=== PATIENT | male | born 1955 | race Caucasian/White ===

== ENCOUNTER 2017-09-30 14:30 | Inpatient (IN) | payer OTHER ==
[2017-09-30 15:12] VITALS: BMI 22.8
[2017-09-30 16:11] LABS: CKMB 0.7 ng/mL (0-6.6); Troponin I Less than 0.010 ng/mL (< 0.028)
[2017-09-30] MEDS ORDERED: Gentamicin 80 MG/2 ML VIAL ONE (17:39)
[2017-09-30] MEDS ORDERED: CEFAZOLIN 1 GM VIAL ONE (17:39)
[2017-09-30] MEDS ORDERED: Lidocaine 1% (PF) 30 ML VIAL ONE ×2 (17:39→18:30)
[2017-09-30] MEDS ORDERED: CEFAZOLIN/Water 2 GM/20 ML SYRINGE ONE (17:39)
[2017-09-30] MEDS ORDERED: HYDROcodone/Acetaminophen 10/325 mg Tablet PO SCH (20:45)
[2017-09-30] MEDS ORDERED: Enoxaparin Sodium 30 MG/0.3 ML SYRINGE SC SCH (21:00)
--- NOTE | 2017-09-30 21:00 | RAD ---
AP VIEW CHEST: INDICATIONS: Status post pacemaker insertion. COMPARISON: 09/26/2015 IMPRESSION: There is a new dual-lead pacemaker overlying the left chest wall. No pneumothorax is evident. No pl eural effusion is noted. Post traumatic/post surgical change involving the right clavicle is stable. POS: [facility]
[2017-09-30] MEDS ORDERED: Acetaminophen/Codeine 30-300mg Tablet PO PRN (21:13)
[2017-09-30] MEDS ORDERED: hydrALAZINE 20 MG/ML VIAL ONE (21:26)
[2017-09-30] MEDS ORDERED: Rosuvastatin 20 MG TAB PO SCH (21:30)
[2017-09-30] MEDS ORDERED: Amlodipine 5 MG TAB PO SCH (21:30)
[2017-10-01 05:47] LABS: ALT (SGPT) 41 U/L (8-55); AST (SGOT) 23 U/L (5-34); Albumin 3.7 g/dL (3.4-4.8); Alkaline Phosphatase 114 U/L (40-150); Anion Gap 13 mmol/L (10-20); BUN (Urea Nitrogen) 19 mg/dL (8.4-25.7); Bilirubin, Total 0.5 mg/dL (0.2-1.2); Calc. Creatinine Clearance 60 mL/min (70-130); Carbon Dioxide 22 mmol/L (23-31); Cardiac Risk 8.2 (Less than 4.5); Chloride 106 mmol/L (98-107); Cholesterol 262 mg/dl (< 200 Desired); Estimated GFR-MDRD 49; Globulin 2.8 g/dL (2.4-3.5); Glucose 148 mg/dL (80-115); HDL Cholesterol 32 mg/dL (>60 Neg Risk); LDL Cholesterol, Calculated 197 mg/dL; Potassium 4.1 mmol/L (3.5-5.1); Protein, Total 6.5 g/dL (5.8-8.1); Sodium 137 mmol/L (136-145); Triglycerides 166 mg/dL (Less than 150)
[2017-10-01 05:54] LABS: #Basophils 0.1 thou/uL (0.0-0.2); #Eosinphils 0.2 thou/uL (0.0-0.7); #Lymphocytes 1.1 thou/uL (1.20-3.40); #Monocytes 0.6 thou/uL (0.11-0.59); #Neutrophils 5.3 thou/uL (1.40-6.50); %Basophils 0.7 % (0.0-1.0); %Eosinophils 2.7 % (0.0-10.0); %Lymphocytes 15.5 % (21.0-51.0); %Monocytes 8.3 % (0.0-10.0); %Neutrophils 72.8 % (42.0-75.0); Hemoglobin 14.5 g/dL (14.0-18.0); Mean Corpuscular HGB CONC 34.8 g/dL (32.0-36.0); Mean Corpuscular Volume 94.9 fl (80.0-94.0); Mean Platelet Volume 9.1 fL (7.4-10.4); Platelet Count 154 thou/uL (130-400); Red Blood Cell (RBC) Count 4.41 mill/uL (4.70-6.10); White Blood Cell (WBC) Count 7.3 thou/uL (4.8-10.8)
--- NOTE | 2017-10-01 07:20 | CCL ---
PACEMAKER INSERTION: Date: 09/30/17 This is a 62-year-old patient who developed complete AV heart block with severe bradycardia. He was advised to undergo dual chamber pacemaker insertion. He was taken to cardiac catheterization lab, pr epped, and draped in sterile fashion, and underwent the procedure without difficulties or complicatio ns. He was implanted an Catrachita XT dual chamber pacemaker from [employer] with two screw in leads, one in the atrium and one in the ventricle. There were no significant difficulties or complications enco untered. The pacemaker set with the upper rate of 120 and the lower rate was set at 60. This is an MRI-compatible device. He did have some bleeding issues in closing of the wound, but otherwise good hemostasis was obtained prior to closing of the incision.
--- NOTE | 2017-10-01 08:54 | CON ---
DATE OF ADMISSION: 09/30/2017 DATE OF CONSULTATION: 09/30/2017 INDICATION FOR CONSULTATION: A 62-year-old gentleman with intermittent complete heart block. HISTORY OF PRESENT ILLNESS: This very pleasant 62-year-old gentleman, over the last week or two has had 2 syncopal episodes, one while he was walking to the door to look the dog out and the other time occurred after he is cutting some grass. He stopped more than passed out. He realized that he started feeling the lightheadedness coming on. He has also been not feeling very well and does complain of some atypical type chest discomfort, but this has been evaluated by Dr. Ray in the office. He recently was seen in the office on 08/06/2017. He has had a normal ejection fraction in the past by echocardiogram and has had a negative stress test for ischemia. At this time, while being on telemetry , it was noted that the patient had intermittent sinus rhythm, then ultimately had complete heart block. At this time, heart rate in the 30s and 40s any fluctuations in complete heart block and second degree heart block and a normal sinus rhythm. He has some significant degree of sinus node dysfunction and high degree of block. It will need to undergo pacemaker insertion. PAST MEDICAL HISTORY: Significant for hyperlipidemia and a history of pancreatitis in the past. ALLERGIES: None. MEDICATIONS: Prior to admission included aspirin, fish oil, and niacin. REVIEW OF SYSTEMS: Twelve point review of systems completely unremarkable except for what is noted in the history of present illness. FAMILY HISTORY: Noncontributory. ALLERGIES: None. SOCIAL HISTORY: He is , has no history of alcohol or tobacco abuse except for occasional alcohol use. LABORATORY DATA: Cardiac enzymes are negative. His creatinine is 1.56, BUN was 18. Sodium was 141, cholesterol was 220, which is elevated. His hemoglobin was 15.8, platelet count 154,000 hematocrit 44.4. PHYSICAL EXAMINATION: GENERAL: Reveals well-developed, well-nourished gentleman who is in no acute distress. At this time, he does feel occasionally lightheaded or dizzy. His heart rates in the 30s to 50s, and occasionally in the 60s, respiratory rate 16 , blood pressure 143/73. He is afebrile. HEENT: Shows head to be normocephalic, atraumatic. Carotid pulses are present. There were no bruits, there is no JVD. Thyroid not enlarged. CHEST: Clear to auscultation without rales, rhonchi, or wheezing. CARDIOVASCULAR: Exam reveals a bradycardia. There were no significant murmurs , heaves, thrills, bruits or rubs. ABDOMEN: Soft and flat and nontender. Positive bowel sounds are present. EXTREMITIES: Showed no clubbing, cyanosis, or edema. Pedal pulses are present. NEUROLOGIC: The patient remains intact despite having a significantly bradycardia associated with a complete heart block. IMPRESSION: 1. Intermittent complete heart block only with second degree heart block and occasional sinus rhythm. This obviously indicates a significant degree of sinus node dysfunction in a significant level of AV block. He will be advised to undergo urgent pacemaker insertion. I have explained the procedure and the risks to him to include bleeding, infection, possibly a myocardial infarction, CVA, renal insufficiency, allergic contrast reaction, and the possibility of . He understands and agrees to proceed. We will plan for pacemaker insertion today with dual-chamber pacemaker. 2. Dyslipidemia. He has significant elevation of his cholesterol level. He will be encouraged to start cholesterol medications, if he is unable to take statins which appears to may be the case as he is on fish oil and niacin that perhaps he start on injectable medications in the form of his K39 inhibitors. 3. Chest discomfort. This is somewhat atypical, but he may need further evaluation in the future, especially due to the significant elevation of the cholesterol level. I have explained the procedure for the pacemaker and the risks to include bleeding, infection, possibility of pneumothorax, hemothorax, pericardial tamponade, even the possibility of and he understands and agrees to proceed. We will plan for pacemaker insertion and urgently today. AD
[2017-10-01] MEDS ORDERED: Aspirin 325 mg Enteric Coated Tablet PO SCH (09:00)
[2017-10-01] MEDS: Amlodipine 5 MG TAB PO SCH (09:07)
[2017-10-01] MEDS ORDERED: Iopamidol 370 76% 100 ML VIAL ONE (09:47)
[2017-10-01] MEDS ORDERED: Acetaminophen 325 MG TAB PO PRN (10:45)
[2017-10-01] MEDS: cefTRIAXone\\ROCEPHIN 1 GM, Syringe 0.4 ML in Sterile Water 9.6 ML SLOW IVP SCH ×2 (11:13→22:34)
--- NOTE | 2017-10-01 11:16 | SS ---
REASON FOR ADMISSION/CHIEF COMPLAINT: The patient has episode of passing out about 3 days before the admission. HISTORY OF PRESENT ILLNESS: A 62-year-old white male who had a significant history of mixed type dys lipidemia, and started having decreased exercise tolerance about 2 years back. The patient was having intermittent decreased exercise tolerance, had a pulmonary consultation with irma guerriermonary function testing as well as distantly 3 months ago he had a cardiac stress test as well as a 2D echo and carotid Dopplers which were unremarkable and he was continued to have decline in exercis e tolerance. At the point about a week prior to this admission, the patient had an episode of syncop e at home. The patient was advised to come in the office and EKG was performed which showed Mobitz t ype 2 AV block as well as complete intermittent third degree AV block. The patient was planned to em ergently admit to the telemetry unit here at [facility]. The patient's symptoms included se evelin tiredness and fatigue over the last several days of duration with 2 episodes of syncope and feel ing severely fatigued and tiredness with heart rate in the 30s. The patient also had some headache, but no chest pain and did have shortness of breath with very mini mal exertion. No fever, no chills, no other symptomatology, no gastric acid reflux disorder, no sarah ritis. PAST MEDICAL HISTORY: Mixed type dyslipidemia for which he has stopped taking his Crestor for about 4-5 months. FAMILY HISTORY: Coronary artery disease at younger age. SOCIAL HISTORY: He does not smoke or does not drink and he is employed at [employer]. HOME MEDICATIONS: Currently none. REVIEW OF SYSTEMS: As dictated earlier. PHYSICAL EXAMINATION: VITAL SIGNS: The patient had a temperature 98.3, pulse 64, respirations 18, blood pressure 158/81. GENERAL: A very pleasant white male, not in acute distress. NECK: Supple. No carotid bruits appreciated. HEENT: PERRL, EOMI. Throat is clear. CARDIOVASCULAR: He does have some ectopic beats and some early beats with a slow heart examination. S1, S2 were slower with some irregularity in rhythm appreciated. CHEST: Clear to auscultation bilaterally. ABDOMEN: Soft, nontender, nondistended. EXTREMITIES: No cyanosis, clubbing or edema. NEUROLOGIC: No gross sensory or motor deficit appreciated. LABORATORY AND X-RAY FINDINGS: White count was 7.3, hemoglobin of 14.5, platelets was 154,000 and he matocrit was 41. Sodium was 137, potassium 4.1, chloride 106, bicarbonate 12, BUN of 19, creatinine was 1.4 and glucose 148. Triglyceride 166, LDL 197, HDL 32. Total cholesterol was 262. The patient had EKG which showed Mobitz type 2 block with heart rate of 37 at the time of admission. The patient is admitted. Dr. Ray was consulted as well as Dr. Chambers from [facility] fo r further evaluation and treatment of intermittent third-degree AV block as well as a second degree M obitz type 2 AV block. The patient was admitted to telemetry directly from the office initially with the help of [facility]. The patient went through pacemaker placement by Dr. Chambers. The pat ient on 09/30/2017 in late evening, the patient went to the cardiac catheterization lab with the help of Dr. Chambers and dual-chamber pacemaker was placed and the patient was transferred back to the teleme try unit post procedure. The patient has continued to do well. The patient's blood pressure went up so amlodipine 5 mg was added to his regimen of Crestor 20 mg p.o. at bedtime. The patient also comp lained of some headache most likely due to hypoperfusion from resolution of bradycardia and now his h eart rate in the 70s. Overall, the patient does not have any chest pain or dyspnea, but continued to have discomfort on the skin over the pacemaker was placed and some erythema on examination with warm th, so was the plan was to start him on IV Rocephin and some Tylenol p.r.n. for the headache and will give some [place] 10/325 q.6h. as needed for the pain. We will continue to follow during this hospita lization and discharge planning was done with the help of Dr. Chambers and continue to monitor pacemaker on outpatient setting by Dr. Chambers office. DISCHARGE MEDICATIONS: Most likely related medication upon discharge will be Crestor 20 mg one p.o. at bedtime, amlodipine 5 mg once a day and will add some antibiotic appears needed, which will be dec ided upon on outpatient follow up tomorrow. The patient was advised to have close followup in my off ice as well as Dr. Chambers' office and he agreed and understood.
[2017-10-01] MEDS ORDERED: Morphine 4 MG/ML VIAL SLOW IVP PRN ×2 (11:22→16:13)
[2017-10-01] MEDS ORDERED: Morphine 4 MG/ML VIAL SLOW IVP SCH (11:30)
[2017-10-01] MEDS ORDERED: Ondansetron HCl/PF 4 MG/2 ML Vial SLOW IVP SCH (11:45)
[2017-10-01] MEDS ORDERED: Ondansetron ODT 4 MG TAB PO SCH (12:00)
[2017-10-01] MEDS ORDERED: Lidocaine 1% (PF) 30 ML VIAL ONE (12:38)
--- NOTE | 2017-10-01 12:42 | PRG ---
DATE OF SERVICE: 10/01/2017 Mr. Luong today had an episode of chest pain. This was described as over his pacer. He also had s evere migraine headache. He states he is feeling better, but continued to have intermittent chest pa in. He does not feel it is a soreness from his pacer site. He recently underwent pacemaker placement for recent syncope and a second degree type 2 and third deg ree AV block. Mr. Luong has had a treadmill stress test that was positive for ischemia. He underwent Cardiolite treadmill stress that was negative for ischemia. He has continued to have intermittent episodes of c hest pain. There is concern for involvement of the right coronary artery associated with chest pain and recent t hird degree AV block which seemed to be fairly spontaneous. I discussed medical therapy versus angio graphy. He decided to proceed with coronary angiography only. No heparin will be given due to risk of bleeding in the pacer pocket in addition to difficulty on closure of the pacer site which increase s his risk of infection. I discussed the procedure in full detail with he and his . The risks i nclude but are not limited to the following: , stroke, AL, need for emergency surgery, loss of limb, bleeding, and infection, as well as a reaction to the dye causing kidney failure and needing lo ng-term dialysis. I also discussed the risks of PCI to include all of the above including coronary d issection and perforation in addition to acute stent thrombosis and restenosis. All questions about the procedure were answered. Given the above, the patient agreed to proceed with coronary angiograph y and possible PCI. All questions were answered. Given the above, the patient agreed to proceed with the above procedure .
[2017-10-01] MEDS ORDERED: Communication Order-Pharmacy FS SCH (12:45)
[2017-10-01] MEDS ORDERED: Midazolam HCl 2 mg/2 ml Vial ONE (13:12)
[2017-10-01] MEDS ORDERED: Fentanyl 100 MCG/2 ML VIAL ONE (13:12)
[2017-10-01] MEDS ORDERED: Acetaminophen/Codeine 30-300mg Tablet PO PRN ×2 (13:24)
[2017-10-01] MEDS ORDERED: Nitroglycerin 0.4 MG TAB (25 Tab Bottle) SL PRN (13:24)
[2017-10-01] MEDS ORDERED: traMADol HCl 50 MG TAB PO PRN (13:24)
[2017-10-01] MEDS ORDERED: Sodium Chloride 0.9% 200 ML IV SCH (13:30)
[2017-10-01] MEDS ORDERED: Sodium Chloride 0.9% 1,000 ML IV SCH (14:15)
[2017-10-01] MEDS: HYDROcodone/Acetaminophen 10/325 mg Tablet PO PRN ×2 (14:51→20:29)
[2017-10-01] MEDS ORDERED: Ondansetron HCl/PF 4 MG/2 ML Vial SLOW IVP PRN (16:14)
--- NOTE | 2017-10-01 20:56 | CT ---
CT BRAIN WITHOUT CONTRAST: INDICATIONS: History of syncope. COMPARISON: None. FINDINGS: There is some residual contrast within the intravascular space of the brain, from the patient's previ ous catheterization. No definite acute infarct, hemorrhage, or hydrocephalus is present. The septum pellucidum and third ventricle are midline. The mastoid air cells are clear. The paranasal sinuses are clear. The skull is intact. IMPRESSION: No acute intracranial abnormality. POS: [facility]
[2017-10-01] MEDS ORDERED: Rosuvastatin 20 MG TAB PO SCH (21:00)
--- NOTE | 2017-10-02 08:31 | PRG ---
DATE OF SERVICE: 10/02/2017 HISTORY OF PRESENT ILLNESS: Mr. Luong is doing very well today. He states he feels great. No cur rent complaints. Headache is resolved. PHYSICAL EXAMINATION: VITAL SIGNS: Blood pressure 107/60, pulse 71, temperature 99.4. LUNGS: Clear to auscultation. CARDIAC: Regular rate and rhythm. ABDOMEN: Soft, nontender, nondistended. EXTREMITIES: No edema. CT scan of the head negative for abnormalities. IMPRESSION: 1. Sick sinus syndrome. 2. Status post pacemaker placement. 3. Coronary artery disease. RECOMMENDATIONS: I would recommend a low dose aspirin at 81 q.a.m. in addition to a statin therapy. I have added low dose beta therese therapy due to a significant lesion noted distal LAD near the ape x. I will recheck his BMP. Otherwise, from my standpoint, I have no further recommendations. It wo uld be okay from my standpoint to discharge home.
[2017-10-02] MEDS ORDERED: Metoprolol Tartrate 25 MG TAB PO SCH (09:00)
[2017-10-02 09:04] LABS: Anion Gap 10 mmol/L (10-20); BUN (Urea Nitrogen) 14 mg/dL (8.4-25.7); Calc. Creatinine Clearance 61 mL/min (70-130); Calcium 9.6 mg/dL (7.8-10.44); Carbon Dioxide 29 mmol/L (23-31); Chloride 103 mmol/L (98-107); Estimated GFR-MDRD 49; Glucose 169 mg/dL (80-115); Potassium 4.5 mmol/L (3.5-5.1); Sodium 137 mmol/L (136-145)
[2017-10-02] MEDS: Amlodipine 5 MG TAB PO SCH (10:02)
[2017-10-02 11:57] VITALS: BP 120/80; TEMP 98.6
[2017-10-02] MEDS: cefTRIAXone\\ROCEPHIN 1 GM, Syringe 0.4 ML in Sterile Water 9.6 ML SLOW IVP SCH (12:12)
--- NOTE | 2017-10-02 13:20 | DIS ---
DISCHARGE CONDITION: Stable. DISCHARGE DIAGNOSES: 1. Sick sinus syndrome, status post dual chamber pacemaker placement. 2. Syncope due to sick sinus syndrome. 3. Severe symptomatic bradycardia. 4. Coronary artery disease. 5. Distal LAD lesion with other 2 with 50% blockages required recommended medical management. PROCEDURES DURING THIS HOSPITALIZATION: 1. Dual-chamber pacemaker placement. 2. Coronary angiography which showed coronary artery disease. 3. Dyslipidemia, mixed type. DISPOSITION: The patient to discharge home. Follow with me in about [address] Ray in 2- 3 weeks. DISCHARGE MEDICATIONS: The patient will be taking the following medications; 1. Aspirin 81 mg once a day. 2. Coreg 3.125 mg twice a day. 3. Crestor 20 mg p.o. at bedtime. 4. Amlodipine 5 mg once a day. 5. Tylenol #3 one to two every 4 hours as needed. 6. Keflex 500 mg p.o. q.i.d. #40. HOSPITAL COURSE: This is a 63-year-old white male admitted after a syncopal episode and third degree AV block. The patient was admitted to continuous telemetry monitoring where the patient was taken to the cath l ab by Dr. Chmabers and dual-chamber pacemaker was placed. Next day, patient was having severe excruciating headache, so plan was made to have the CT scan witho ut contrast was made. The patient also had this syncopal episode with severe dyslipidemia, mixed type. Plan was made to co nsult Dr. Ray to consider cardiac angiography. Coronary angiography has showed distal lesion on the LAD which was able to put the stent and therefor e some medical management was recommended. There were some other 50% blockage in the cardiac cathete rization report from Dr. Ray and medical management was recommended. The patient had a CT sca n of the head done without contrast because patient did have contrast shown on his scan of the brain which was unremarkable and plan was made that the patient was not having a mild headache and was feel ing much better, discharged home with cardiac rehab and continues to follow in the outpatient setting as well as Cardiology followup as recommended.
--- NOTE | 2017-10-06 08:40 | EKG ---
Test Reason : STAT EKG Blood Pressure : / mmHG Vent. Rate : 050 BPM Atrial Rate : 050 BPM P-R Int : 200 ms QRS Dur : 096 ms QT Int : 438 ms P-R-T Axes : 048 080 039 degrees QTc Int : 399 ms Sinus bradycardia Possible Left atrial enlargement Borderline ECG No previous ECGs available Confirmed by SARITHA COLE, LEONARDO ([id number]) on 10/06/2017 8:39:33 AM Referred By: Confirmed By:LEONARDO MELARA MD
--- NOTE | 2017-10-06 08:42 | EKG ---
Test Reason : Blood Pressure : / mmHG Vent. Rate : 060 BPM Atrial Rate : 060 BPM P-R Int : 098 ms QRS Dur : 156 ms QT Int : 472 ms P-R-T Axes : 013 -75 073 degrees QTc Int : 472 ms AV sequential or dual chamber electronic pacemaker When compared with ECG of 30-SEP-2017 15:38, (Unconfirmed) Electronic ventricular pacemaker has replaced Sinus rhythm Confirmed by SARITHA COLE, LEONARDO ([id number]) on 10/06/2017 8:41:45 AM Referred By: [facility] Confirmed By:LEONARDO MELARA MD
== END 2017-10-02 13:00 | disposition home or self-care (01) | DRG 243 ==
LOC: SDC 14:30 → 2NO 14:36 → EDSTATUS 14:36
PROVIDERS: ADMIT Family Medicine; ATTEND Family Medicine
PROC: 0JH606Z Insertion of Pacemaker, Dual Chamber into Chest Subcutaneous Tissue and Fascia, Open Approach (ICD-10-PCS; principal; 2017-09-30)
PROC: 02H63JZ Insertion of Pacemaker Lead into Right Atrium, Percutaneous Approach (ICD-10-PCS; 2017-09-30)
PROC: 4A023N7 Measurement of Cardiac Sampling and Pressure, Left Heart, Percutaneous Approach (ICD-10-PCS; 2017-09-30)
PROC: B2111ZZ Fluoroscopy of Multiple Coronary Arteries using Low Osmolar Contrast (ICD-10-PCS; 2017-09-30)
PROC: B2151ZZ Fluoroscopy of Left Heart using Low Osmolar Contrast (ICD-10-PCS; 2017-09-30)
PROC: 02HK3JZ Insertion of Pacemaker Lead into Right Ventricle, Percutaneous Approach (ICD-10-PCS; 2017-09-30)
DX: I49.5 Sick sinus syndrome (principal); I44.2 Atrioventricular block, complete; E78.2 Mixed hyperlipidemia; I44.1 Atrioventricular block, second degree; I25.10 Atherosclerotic heart disease of native coronary artery without angina pectoris
CPT/HCPCS: 33208; 36415; 70450; 71045; 80048; 80053; 80061; 82306; 82553; 82607; 83036; 83090; 83735; 84443; 84484; 85025; 85379; 85652; 86140; 93005; 93010; 93458; 93798; 99152; A4216; C1769; C1785; C1898; J0360; J0690; J0696; J1580; J1644; J1650; J2001; J2250; J2270; J3010; Q0162